=== PATIENT | male | born 1955 | race African-American/Black ===

== ENCOUNTER 2016-10-14 14:39 | Inpatient (IN) | payer OTHER ==
[~2016-10-14] VITALS: Ht 162.6 cm; Wt 86.8 kg
[2016-10-14 16:22] LABS: APTT 31.4 SECONDS (22.8-39.4); INR 1.06 (0.85-1.17); PROTIME 13.6 SECONDS (11.6-15.0)
[2016-10-14 16:23] LABS: D-DIMER-QUANTITATIVE 1.06 ug/mLFEU (0.20-0.54)
[2016-10-14 16:26] LABS: PLATELET COUNT 1 10x3/uL (130-400)
[2016-10-14 16:37] LABS: ALBUMIN 3.7 g/dL (3.4-5.0); ANION GAP 14.8 mmol/L (8-16); BILIRUBIN - TOTAL 0.83 mg/dL (0.2-1.3); CALCIUM 8.6 mg/dL (8.5-10.1); CARBON DIOXIDE 25.9 mmol/L (21.0-32.0); CREATININE - SERUM 1.6 mg/dL (0.6-1.3); POTASSIUM - SERUM 3.7 mmol/L (3.5-5.1); PROTEIN - SERUM 7.3 g/dL (6.4-8.2); THYROID STIMULATING HORMONE 2.35 uIU/mL (0.36-3.74)
[2016-10-14 16:53] LABS: ERYTHROCYTE SEDIMENTATION RATE 23 mm/hr (0-20)
[2016-10-14 17:59] VITALS: BP 124/71
--- NOTE | 2016-10-14 18:00 | NUR ---
PT IN ROOM VIA BED. ALERT AND ORIENTED X4. PT STATED HE WAS SEEING HIS MD AT THE CLINIC FOR LEFT HIP PAIN RELATED TO BOWLING AND THE MD TOLD HIM HE WAS GETTING ADMITTED INTO THE HOSPITAL FOR LOW PLATLENTS. HAS A PIC TO HIS RIGHT HAND SL. LAB CALLED IN A CRITICAL LAB. PLATLETS 1. MD AWARE OF LAB.
--- NOTE | 2016-10-14 18:45 | NUR ---
PT TRANSPORTED TO ROOM 2210 VIA W/C. BREATHING NORMAL AND UNLABORED. 0 S/SX OF DISTRESS/DISCOMFORT NOTED. NURSE AWARE OF PT.
--- NOTE | 2016-10-14 19:00 | NUR ---
PATIENT TO ROOM AT THIS TIME. IV INTACT. CALLED BRIAN RN TO LET HER KNOW THAT PATIENTS MEDS AND AIR CONDITIONING SERVICE TECHNICIAN HAVE NOT BEEN COMPLETED YET. PATIENT QUICK STARTED AT 1612. STATED SHE WAS BUSY AT THIS TIME AND DIDNT HAVE TIME TO GET THEM DONE. NOTIFIED KARINA العلي. REPORT GIVEN TO KATYA ORTIZ. PATIENT IN BED WITH NO COMPLAINTS. CALL LIGHT WITHIN REACH. FAMILY AT BEDSIDE.
--- NOTE | 2016-10-14 19:20 | NUR ---
RECIEVED SHIFT REPORT. PT IS LYING IN BED. ALERT AND ORIENTED AND ABLE TO VERBALIZE NEEDS. IV IS PATENT AND SALINE LOC AT THIS TIME. PT IS AMBULATORY BUT WAS INSTRUCTED TO CALL FOR ANY ASSISTANCE NEEDED. PT DENIES ANY PAIN AT THIS TIME. NO NEEDS ARE VERBALIZED AT THIS TIME. WILL CONTINUE TO MONITOR. VISITOR IS AT THE BEDSIDE. SIDE RAILS ARE UP X 2. BED IS IN LOWEST POSITION. CALL LIGHT IS WITHIN REACH.
[2016-10-14 19:26] VITALS: BP 127/68; BMI 32.1
[2016-10-14] MEDS ORDERED: GLUCOPHAGE1000 MG PO (19:42)
[2016-10-14] MEDS ORDERED: PRAVASTATIN SOD10 MG PO (19:43)
[2016-10-14] MEDS ORDERED: K-DUR20 MEQ PO (19:43)
[2016-10-14] MEDS ORDERED: ZIAC 10-6.25 MG1 TAB PO (19:44)
[2016-10-14 20:00] VITALS: BP 117/65
--- NOTE | 2016-10-14 21:55 | NUR ---
SHIFT ASSESSMENT COMPLETED. YSTS=346. PT STATES HE WOULD LIKE TO WAIT UNTIL NEXT FS BEFORE STARTING INSULIN SINCE HE ONLY TAKES PO MEDICINE AT HOME. NO FURTHER NEEDS AT THIS TIME. WILL MONITOR. SIDE RAILS X 2. BED LOW. CALL LIGHT IN REACH.
[2016-10-15] VITALS: BP 141/79
[2016-10-15 04:00] VITALS: BP 121/59
[2016-10-15 06:36] LABS: BASOPHILS 0.2 % (0-2); EOSINOPHILS 0.7 % (0-7); HEMATOCRIT 34.6 % (42.0-54.0); IMMATURE GRANULOCYTES 0.4 % (0-5); LYMPHOCYTES 13.7 % (15-50); MCH 28.5 pg (26.0-34.0); MCHC 34.7 g/dL (31.0-37.0); MCV 82.2 fL (80.0-100.0); MONOCYTES 2.2 % (2-11); NEUTROPHILS 82.8 % (40-80); RBC 4.21 10x6/uL (4.20-6.10); WBC 5.5 10x3/uL (4.8-10.8)
[2016-10-15 06:39] LABS: PLATELET COUNT 1 10x3/uL (130-400)
[2016-10-15 07:00] LABS: ALBUMIN 3.5 g/dL (3.4-5.0); ANION GAP 14.9 mmol/L (8-16); CALCIUM 8.6 mg/dL (8.5-10.1); CARBON DIOXIDE 23.1 mmol/L (21.0-32.0); CREATININE - SERUM 1.5 mg/dL (0.6-1.3); PROTEIN - SERUM 7.3 g/dL (6.4-8.2)
[2016-10-15 08:42] VITALS: BP 111/67
--- NOTE | 2016-10-15 10:28 | NUR ---
SPOKE WITH NIRMALA, IN PHARMACY, REGARDING APPROVAL FOR IVIG. NIRMALA STATED, "THEY ARE IN THE MEETING FOR THE APPROVAL FOR IT RIGHT NOW." EXPLAINED TO HER THAT DR. GONZALES WANTS THE IVIG GIVEN BEFORE HE GETS HIS PLATLETS. STATES SHE UNDERSTANDS AND THAT IT SHOULDN'T BE MUCH LONGER UNTIL THEY ARE DONE WITH THE MEETING.
[2016-10-15 12:16] VITALS: BP 128/75
[2016-10-15 13:45] VITALS: Ht 162.6 cm; Wt 86.8 kg
--- NOTE | 2016-10-15 15:12 | NUR ---
IVIG STARTED PER LEFT SALINE LOCK FOREARM. VS 98.9 83 18 140/77 SAT 98 OF RA. INFORMATION PAPERS GIVEN TO PATIENT REGARDING IVIG INFUSION. STARTED AT 50CC/HR. CALL LIGHT IN REACH. THIS NURSE TO STAY X 15 MIN.
[2016-10-15 16:19] VITALS: BP 153/68
[2016-10-15 20:00] VITALS: BP 136/76
--- NOTE | 2016-10-15 20:05 | NUR ---
PATIENT RESTING IN BED AND DENIES NEEDS AT THIS TIME. PATIENT SIGNED CONSENTS FOR TRANSFUSION. BED IN LOWEST POSITION AND CALL LIGHT WITHIN REACH. ENCOURAGED THE PATIENT TO CALL IF HE HAS NEEDS.
--- NOTE | 2016-10-15 22:50 | NUR ---
BEGAN INFUSING 1 UNIT PLATELETS
[2016-10-16] VITALS (7 sets, daily range): BP systolic 108–119; BP diastolic 55–71
[2016-10-16 05:48] LABS: BASOPHILS 0.1 % (0-2); EOSINOPHILS 0 % (0-7); HEMATOCRIT 29.5 % (42.0-54.0); HEMOGLOBIN 10.2 g/dL (13.5-17.5); IMMATURE GRANULOCYTES 0.4 % (0-5); LYMPHOCYTES 7.1 % (15-50); MCH 28.7 pg (26.0-34.0); MCHC 34.6 g/dL (31.0-37.0); MCV 82.9 fL (80.0-100.0); MONOCYTES 1.7 % (2-11); NEUTROPHILS 90.7 % (40-80); RBC 3.56 10x6/uL (4.20-6.10); RDW 14.5 % (11.5-14.5)
[2016-10-16 06:10] LABS: ALBUMIN 3.4 g/dL (3.4-5.0); ANION GAP 15.2 mmol/L (8-16); CALCIUM 8.2 mg/dL (8.5-10.1); CARBON DIOXIDE 23.8 mmol/L (21.0-32.0); CREATININE - SERUM 1.7 mg/dL (0.6-1.3); PROTEIN - SERUM 7.7 g/dL (6.4-8.2); WBC 8.1 10x3/uL (4.8-10.8)
[2016-10-16 06:12] LABS: PLATELET COUNT 10 10x3/uL (130-400)
--- NOTE | 2016-10-16 07:30 | NUR ---
RECIEVED PT DURING WALKING ROUNDS. PT RESTING IN BED WITH NO COMPLAINTS OF PAIN OR DISCOMFORT AT THIS TIME. PT STATED THAT HIS HEAR FELT THAT HE HAD FLUID BEHIND IT, INFORMED PT THAT WE WOULD SPEAK WITH DOCTOR DURING ROUNDS. ASSESSMENT DONE PER FLOWSHEET. BED IN LOW POSITION AND CALL LIGHT WITHIN REACH. WILL CONTINUE TO MONITOR.
--- NOTE | 2016-10-16 11:30 | NUR ---
IV INFILTRATED AT THIS TIME, FLUIDS STOPPED. CALLED ANGEL ALMANZAR, VASCULAR ACCESS NURSE TO SITE PTS IV. WILL CONTINUE TO MONITOR.
--- NOTE | 2016-10-16 13:55 | NUR ---
IV RESITED BY YOHAN IRIZARRY, STEM MAKER ACCESS NURSE AT THIS TIME, MEDICATION RESTARTED TO LEFT AC. BED IN LOW POSITION AND CALL LIGHT WITHIN REACH. WILL CONTINUE TO MONITOR.
--- NOTE | 2016-10-16 15:00 | NUR ---
1 UNIT APHERESED PLATELETS TRANSFUSED TO LEFT AC 20 ZULEIMA IV OVER 20 MIN, MONITORED PER POLICY NO S/S OF REACTION.
[2016-10-16 18:12] LABS: BASOPHILS 0 % (0-2); EOSINOPHILS 0 % (0-7); HEMATOCRIT 28.9 % (42.0-54.0); HEMOGLOBIN 9.7 g/dL (13.5-17.5); IMMATURE GRANULOCYTES 0.4 % (0-5); MCH 28.3 pg (26.0-34.0); MCHC 33.6 g/dL (31.0-37.0); MCV 84.3 fL (80.0-100.0); MONOCYTES 2.6 % (2-11); PLATELET COUNT 79 10x3/uL (130-400); RBC 3.43 10x6/uL (4.20-6.10); RDW 14.8 % (11.5-14.5); WBC 10.8 10x3/uL (4.8-10.8)
[2016-10-17 04:00] VITALS: BP 142/82
[2016-10-17 05:15] LABS: BASOPHILS 0 % (0-2); EOSINOPHILS 0 % (0-7); HEMOGLOBIN 9.3 g/dL (13.5-17.5); IMMATURE GRANULOCYTES 0.5 % (0-5); LYMPHOCYTES 5.3 % (15-50); MCHC 34.4 g/dL (31.0-37.0); MCV 84.1 fL (80.0-100.0); MEAN PLATELET VOLUME 11.7 fL (7.4-10.4); MONOCYTES 2.5 % (2-11); NEUTROPHILS 91.7 % (40-80); RBC 3.21 10x6/uL (4.20-6.10); RDW 14.7 % (11.5-14.5); WBC 9.8 10x3/uL (4.8-10.8)
[2016-10-17 05:16] LABS: PLATELET COUNT 113 10x3/uL (130-400)
[2016-10-17 05:29] LABS: ALBUMIN 2.9 g/dL (3.4-5.0); ANION GAP 9.1 mmol/L (8-16); BILIRUBIN - TOTAL 0.7 mg/dL (0.2-1.3); CALCIUM 7.8 mg/dL (8.5-10.1); CARBON DIOXIDE 28.4 mmol/L (21.0-32.0); CREATININE - SERUM 1.6 mg/dL (0.6-1.3); POTASSIUM - SERUM 3.5 mmol/L (3.5-5.1); PROTEIN - SERUM 7.6 g/dL (6.4-8.2)
--- NOTE | 2016-10-17 07:30 | NUR ---
RECIEVED PT DURING WALKING ROUNDS, PT RESTING IN BED WITH NO COMPLAINTS OF PAIN OR DISCOMFORT AT THIS TIME. ASSESSMENT DONE PER FLOWSHEET. BED IN LOW POSITION AND CALL LIGHT WITHIN REACH. WILL CONTINUE TO MONITOR.
[2016-10-17 09:23] VITALS: BP 139/82
--- NOTE | 2016-10-17 12:10 | NUR ---
SPOKE WITH PIERRE DOYLE APN AT THIS TIME ABOUT PTS BLOOD GLUCOSE LEVEL. PT IS ON HIGH RESISTANCE SCALE, NO NEW ORDERS RECIEVED AT THIS TIME. BED IN LOW POSITION AND CALL LIGHT WITHIN REACH. WILL CONTINUE TO MONITOR.
[2016-10-17 13:23] VITALS: BP 103/62
--- NOTE | 2016-10-17 14:16 | NUR ---
Nutrition Consult: Consult received for diabetic education. Pt stated that he had been diabetic for ~5 years. He said that he takes Metformin. Pt stated that he wants to lose wt and desires to become more active. He also wants to begin making healthier choices with eating. Reviewed CHO containing foods, serving sizes, grams of CHO/meal. Pt stated that he understood information and desired to have outpatient DM education as well. Written material, RD name and number left with pt. Pt encouraged to contact RD with any questions/concerns. RD spoke with UNIVERSITY LECTURER regarding outpatient education. UNIVERSITY LECTURER contacted scheduling and pt now has an appointment with RD as an outpatient. Informed pt of date and time. Pt stated that he was thankful. Thank you for the consult. RD following.
[2016-10-17 17:27] VITALS: BP 122/72
[2016-10-17 20:00] VITALS: BP 112/59
[2016-10-18] VITALS: BP 137/68
[2016-10-18 04:00] VITALS: BP 128/62
--- NOTE | 2016-10-18 05:51 | NUR ---
PT RESTED COMFORTABLY MOST OF NIGHT. DENIES PAIN. NO NEEDS AT THIS TIME. WILL CONTINUE TO MONITOR.
[2016-10-18 06:38] LABS: BASOPHILS 0.1 % (0-2); EOSINOPHILS 0 % (0-7); HEMATOCRIT 27.5 % (42.0-54.0); HEMOGLOBIN 9.7 g/dL (13.5-17.5); IMMATURE GRANULOCYTES 0.7 % (0-5); LYMPHOCYTES 7.2 % (15-50); MCH 29.5 pg (26.0-34.0); MCHC 35.3 g/dL (31.0-37.0); MCV 83.6 fL (80.0-100.0); MEAN PLATELET VOLUME 10.7 fL (7.4-10.4); MONOCYTES 2.5 % (2-11); NEUTROPHILS 89.5 % (40-80); RBC 3.29 10x6/uL (4.20-6.10); WBC 8.4 10x3/uL (4.8-10.8)
[2016-10-18 06:43] LABS: PLATELET COUNT 154 10x3/uL (130-400)
[2016-10-18 07:02] LABS: ANION GAP 10.7 mmol/L (8-16); CALCIUM 7.3 mg/dL (8.5-10.1); CARBON DIOXIDE 26.8 mmol/L (21.0-32.0); CREATININE - SERUM 1.4 mg/dL (0.6-1.3); POTASSIUM - SERUM 3.5 mmol/L (3.5-5.1)
[2016-10-18 07:20] VITALS: BP 104/49
--- NOTE | 2016-10-18 07:47 | NUR ---
PATIENT IN BED WITH IV INTACT. NO COMPLAINTS. SITTING IN BED WITH EYES OPEN. DENIES ANY NEEDS AT THIS TIME. CALL LIGHT WITHIN REACH.
--- NOTE | 2016-10-18 10:00 | NUR ---
PATIENT SITTING UP IN BED WITH NO COMPLAINTS AT THIS TIME. IV INTACT. CALL LIGHT WITHIN REACH.
[2016-10-18 11:05] VITALS: BP 98/53
--- NOTE | 2016-10-18 13:45 | NUR ---
PATIENT SITTING UP IN CHAIR. NO COMPLAINTS. IV INTACT. CALL LIGHT WITHIN REACH.
--- NOTE | 2016-10-18 14:19 | NUR ---
PATIENT SITTING ON FLOOR IN ROOM. STATED HE WAS SQUATTING TO GET HIS PHONE AND SLID DOWN ON BUTTOCKS. NO INJURIES AQUIRED AT THIS TIME. IV INTACT. VS STABLE. NOTIFIED DR. BOYER AND [facility]NA[facility] CALL [facility]. NO NEW ORDERS RECIEVED. CALL LIGHT WITHIN REACH. BED ALARM ON.
[2016-10-18 15:06] VITALS: BP 122/68
--- NOTE | 2016-10-18 18:07 | NUR ---
PATIENT IN BED WITH NO COMPLAINTS OF PAIN. IV INTACT. CALL LIGHT WITHIN REACH.
[2016-10-18 20:00] VITALS: BP 122/71
[2016-10-19] VITALS: BP 120/66
[2016-10-19 04:00] VITALS: BP 109/60
[2016-10-19 05:23] LABS: BASOPHILS 0.1 % (0-2); EOSINOPHILS 0 % (0-7); HEMATOCRIT 28.6 % (42.0-54.0); HEMOGLOBIN 9.8 g/dL (13.5-17.5); IMMATURE GRANULOCYTES 0.8 % (0-5); MCH 28.7 pg (26.0-34.0); MCHC 34.3 g/dL (31.0-37.0); MCV 83.9 fL (80.0-100.0); MEAN PLATELET VOLUME 10.7 fL (7.4-10.4); MONOCYTES 7.7 % (2-11); NEUTROPHILS 74.4 % (40-80); PLATELET COUNT 163 10x3/uL (130-400); RBC 3.41 10x6/uL (4.20-6.10); WBC 8.8 10x3/uL (4.8-10.8)
[2016-10-19 05:32] LABS: ANION GAP 9.5 mmol/L (8-16); CALCIUM 7.5 mg/dL (8.5-10.1); CARBON DIOXIDE 28.9 mmol/L (21.0-32.0); CREATININE - SERUM 1.4 mg/dL (0.6-1.3); POTASSIUM - SERUM 3.4 mmol/L (3.5-5.1)
--- NOTE | 2016-10-19 07:00 | NUR ---
REPORT RECIEVED ASSUMED CARE. PATIENT IN BED WITH IV INTACT. NO COMPLAINTS AT THIS TIME. CALL LIGHT WITHIN REACH.
[2016-10-19 09:40] VITALS: BP 114/68
[2016-10-19 12:46] VITALS: BP 152/50
[2016-10-19 16:26] VITALS: BP 116/62
--- NOTE | 2016-10-19 17:00 | NUR ---
PATIENT SITTING UP IN BED. NO COMPLAINTS AT THIS TIME. IV INTACT. CALL LIGHT WITHIN REACH.
[2016-10-19 20:00] VITALS: BP 127/61
[2016-10-20] VITALS (11 sets, daily range): BP systolic 116–132; BP diastolic 56–77
--- NOTE | 2016-10-20 07:30 | NUR ---
RECIEVED PT DURING WALKING ROUNDS. PT RESTING IN BED WITH NO COMPLAINTS OF PAIN OR DISCOMFORT AT THIS TIME. ASSESSMENT DONE PER FLOWSHEET. BED IN LOW POSITION AND CALL LIGHT WITHIN REACH. WILL CONTINUE TO MONITOR.
[2016-10-20 07:38] LABS: BASOPHILS 0.1 % (0-2); EOSINOPHILS 0.5 % (0-7); HEMATOCRIT 31.9 % (42.0-54.0); HEMOGLOBIN 10.9 g/dL (13.5-17.5); IMMATURE GRANULOCYTES 1.1 % (0-5); LYMPHOCYTES 23.3 % (15-50); MCH 28.8 pg (26.0-34.0); MCHC 34.2 g/dL (31.0-37.0); MCV 84.2 fL (80.0-100.0); MEAN PLATELET VOLUME 10.5 fL (7.4-10.4); MONOCYTES 6.2 % (2-11); NEUTROPHILS 68.8 % (40-80); PLATELET COUNT 135 10x3/uL (130-400); RBC 3.79 10x6/uL (4.20-6.10); RDW 14.8 % (11.5-14.5)
[2016-10-20 07:51] LABS: ANION GAP 11.2 mmol/L (8-16); CALCIUM 7.9 mg/dL (8.5-10.1); CARBON DIOXIDE 27.5 mmol/L (21.0-32.0); CREATININE - SERUM 1.3 mg/dL (0.6-1.3); POTASSIUM - SERUM 3.7 mmol/L (3.5-5.1)
[2016-10-20 08:39] LABS: APTT 24.3 SECONDS (22.8-39.4); INR 1.18 (0.85-1.17); PROTIME 14.9 SECONDS (11.6-15.0)
--- NOTE | 2016-10-20 16:15 | NUR ---
CALL PLACED TO DR. GONZALES ABOUT PT HEADACHE AND PAIN IN THE RIGHT HIP. RECIEVED ORDERS FOR NORCO-10. WILL ADMINISTER MEDICATION, BED IN LOW POSITION AND CALL LIGHT WITHIN REACH. WILL CONTINUE TO MONITOR.
--- NOTE | 2016-10-20 21:30 | NUR ---
REC'D SITTING UP IN BED. ALERT AND ORIENTED X4. DENIED PAIN AT THIS TIME. DENIED FURTHER NEEDS AT THIS TIME. INSTRUCTED TO CALL IF NEEDED ANYTHING, VERBALIZED UNDERSTANDING. IS AT BEDSIDE. NO DISTRESS NOTED. BED LOW, LOCKED, CALL LIGHT IN REACH. WILL CONT TO MONITOR.
[2016-10-21] VITALS: BP 109/54
--- NOTE | 2016-10-21 02:00 | NUR ---
PT IN BED WITH NO DISTRESS. RESPIRATIONS EVEN AND UNLABORED. SIDE RAILS X 2. BED IS LOW. CALL LIGHT IN REACH.
[2016-10-21 04:00] VITALS: BP 117/67
[2016-10-21 06:43] LABS: BASOPHILS 0 % (0-2); EOSINOPHILS 1.7 % (0-7); HEMATOCRIT 33.5 % (42.0-54.0); HEMOGLOBIN 11.3 g/dL (13.5-17.5); IMMATURE GRANULOCYTES 1.1 % (0-5); LYMPHOCYTES 25.2 % (15-50); MCHC 33.7 g/dL (31.0-37.0); MCV 85.9 fL (80.0-100.0); MONOCYTES 5.4 % (2-11); NEUTROPHILS 66.6 % (40-80); RDW 15.4 % (11.5-14.5); WBC 6.4 10x3/uL (4.8-10.8)
[2016-10-21 06:54] LABS: PLATELET COUNT 100 10x3/uL (130-400)
--- NOTE | 2016-10-21 07:30 | NUR ---
RECIEVED PT DURING WALKING ROUNDS. PT RESTING IN BED WITH COMPLAINTS OF PAIN OF A 5 ON A SCALE OF 1-10. PT REQUEST NO MEDICATION AT THIS TIME. ASSESSMENT DONE PER FLOWSHEET. BED IN LOW POSITION AND CALL LIGHT WITHIN REACH. WILL CONTINUE TO MONITOR.
[2016-10-21 07:38] LABS: ALBUMIN 2.6 g/dL (3.4-5.0); ANION GAP 13.1 mmol/L (8-16); BILIRUBIN - TOTAL 0.8 mg/dL (0.2-1.3); CALCIUM 7.7 mg/dL (8.5-10.1); CARBON DIOXIDE 26.3 mmol/L (21.0-32.0); CREATININE - SERUM 1.3 mg/dL (0.6-1.3); POTASSIUM - SERUM 3.4 mmol/L (3.5-5.1); PROTEIN - SERUM 6.7 g/dL (6.4-8.2)
[2016-10-21 08:58] VITALS: BP 109/62
--- NOTE | 2016-10-21 10:48 | NUR ---
NUTRITION MONITORING & EVAL CHART REVIEWED. PT TOLERATING ADA DIET WITH 100% INTAKE BREAKFAST. WILL CONTINUE TO PROVIDE DIET, MONITOR PO INTAKE. RD FOLLOWING
[2016-10-21 12:51] VITALS: BP 143/88
--- NOTE | 2016-10-21 12:51 | NUR ---
PLATETLETS ADMINISTERED AT THIS TIME PER ORDER. IV RESITED TO THE RIGHT WRIST, 20G. BED IN LOW POSITION AND CALL LIGHT WITHIN REACH. WILL CONTINUE TO MONITOR.
[2016-10-21 13:06] VITALS: BP 129/85
[2016-10-21 13:21] VITALS: BP 138/72
[2016-10-21] MEDS ORDERED: HYDROCODONE-APA1 TAB PO (14:59)
[2016-10-21] MEDS ORDERED: PROTONIX40 MG PO (14:59)
[2016-10-21] MEDS ORDERED: STERAPRED DS 1210 MG PO (14:59)
--- NOTE | 2016-10-21 18:41 | NUR ---
IV REMOVED AND PT DISCHARGED VIA WHEELCHAIR TO HOME WITH A FAMILY MEMBER.
== END 2016-10-21 18:42 | disposition home or self-care (01) | DRG 803 ==
LOC: D.MS 14:39 → D.M2 15:41 → D.MS 15:41
PROVIDERS: Family Medicine; General Practice; ADMIT Internal Medicine Hematology & Oncology
PROC: 0QB33ZX Excision of Left Pelvic Bone, Percutaneous Approach, Diagnostic (ICD-10-PCS; 2016-10-20)
PROC: 07DR3ZX Extraction of Iliac Bone Marrow, Percutaneous Approach, Diagnostic (ICD-10-PCS; principal; 2016-10-20 11:47)
DX: D69.3 Immune thrombocytopenic purpura (principal); N17.9 Acute kidney failure, unspecified; I10 Essential (primary) hypertension; E78.5 Hyperlipidemia, unspecified; K21.9 Gastro-esophageal reflux disease without esophagitis; K59.00 Constipation, unspecified; R19.5 Other fecal abnormalities; E11.65 Type 2 diabetes mellitus with hyperglycemia; E64.9 Sequelae of unspecified nutritional deficiency

== ENCOUNTER 2016-10-23 08:51 | Outpatient (CLI) | payer OTHER ==
[~2016-10-23] VITALS: Ht 162.6 cm; Wt 87.3 kg
[~2016-10-23 08:51] MED LIST: GLUCOPHAGE1000 MG PO; HYDROCODONE-APA1 TAB PO; K-DUR20 MEQ PO; PRAVASTATIN SOD10 MG PO; PROTONIX40 MG PO; STERAPRED DS 1210 MG PO; ZIAC 10-6.25 MG1 TAB PO
[2016-10-23 09:43] VITALS: Ht 162.6 cm; Wt 87.3 kg
== END 2016-10-23 14:45 | disposition home or self-care (01) ==
LOC: D.OPS 08:51
DX: D69.3 Immune thrombocytopenic purpura (principal)

== ENCOUNTER 2016-10-24 08:40 | Outpatient (CLI) | payer OTHER ==
[~2016-10-24] VITALS: Ht 162.6 cm; Wt 87.3 kg
[2016-10-24 10:11] VITALS: BP 130/67; Ht 162.6 cm; Wt 87.3 kg
[2016-10-24 12:07] LABS: BASOPHILS 0.2 % (0-2); EOSINOPHILS 0 % (0-7); HEMATOCRIT 33.2 % (42.0-54.0); HEMOGLOBIN 11.3 g/dL (13.5-17.5); IMMATURE GRANULOCYTES 0.9 % (0-5); LYMPHOCYTES 7.2 % (15-50); MCH 29.3 pg (26.0-34.0); MEAN PLATELET VOLUME 10.7 fL (7.4-10.4); MONOCYTES 4.2 % (2-11); NEUTROPHILS 87.5 % (40-80); PLATELET COUNT 93 10x3/uL (130-400); RBC 3.86 10x6/uL (4.20-6.10); WBC 11.7 10x3/uL (4.8-10.8)
[2016-10-24 13:25] LABS: PLATELET ESTIMATE DECREASED
--- NOTE | 2016-10-24 14:34 | NUR ---
1200 IV DC WITH CATHER TIP INTACT, LAB HERE FOR CBC CALLED TO DR GONZALES
== END 2016-10-24 12:30 | disposition home or self-care (01) ==
LOC: D.OPS 08:40
PROVIDERS: Internal Medicine Hematology & Oncology
DX: D69.3 Immune thrombocytopenic purpura (principal)

== ENCOUNTER 2016-10-28 14:20 | Outpatient (CLI) | payer OTHER ==
[2016-10-28 15:05] VITALS: Ht 162.6 cm
--- NOTE | 2016-10-28 15:08 | NUR ---
1430 PT AMB TO 2514 WITH SL LEFT HAND, STATES HAS NOT ATE LUNCH, SANDWICH TRAY SERVED, LAB NOTIFIED OF PLATLETS 1500 LAB NOTIFIED NEEDS BANDED FOR PLATLETS.
--- NOTE | 2016-10-28 18:18 | NUR ---
1800 IV DC WITH CATHER TIP INTACT
== END 2016-10-28 18:20 | disposition home or self-care (01) ==
LOC: D.OPS 14:20
DX: D69.6 Thrombocytopenia, unspecified (principal)